=== PATIENT | female | born 1985 | race Caucasian/White ===

== ENCOUNTER 2016-11-30 20:44 | Emergency (ER) | payer OTHER, BC ==
[2016-11-30] MEDS ORDERED: Ketorolac 60 MG/2 ML SDV IM ONE (21:15)
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
[2016-11-30] MEDS ORDERED: Ondansetron 4 MG Tab.DIS PO ONE (22:42)
[2016-12-01 02:20] VITALS: BP 108/77
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
== END 2016-11-30 23:03 | disposition home or self-care (01) ==
LOC: MW.ED 20:44
DX: S40.012A Contusion of left shoulder, initial encounter (principal); S00.93XA Contusion of unspecified part of head, initial encounter; S10.93XA Contusion of unspecified part of neck, initial encounter; V49.9XXA Car occupant (driver) (passenger) injured in unspecified traffic accident, initial encounter; F17.200 Nicotine dependence, unspecified, uncomplicated
CPT/HCPCS: 70450; 72125; 73030; 99284; A9270; J1885; 96372

== ENCOUNTER 2017-04-06 07:51 | Day surgery (SDC) | payer BC ==
[~2017-04-06 07:51] MED LIST: Bupivacaine 0.5% 30 ML SDV ONE; Lactated Ringers 1,000 ML IV SCH; Midazolam 1 MG/ML 2 ML SDV ONE; Propofol 200 MG/20 ML SDV ONE; Sodium Chloride 0.9% 10 ML Syringe FLUSH PRN; Sodium Chloride 0.9% 2.5 ML Syringe FLUSH PRN; ceFAZolin 1 GM Vial ONE; ceFAZolin 1 GM in Premix Bag 1 BAG IV ONE; fentaNYL 100 MCG/2 ML SDV ONE
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
[2017-04-06] MEDS ORDERED: fentaNYL 100 MCG/2 ML SDV IVPUSH PRN (08:29)
[2017-04-06] MEDS ORDERED: Lidocaine 2% 5 ML SDV ONE (09:11)
[2017-04-06] MEDS ORDERED: Metoclopramide 10 MG/2 ML SDV ONE (09:11)
[2017-04-06] MEDS ORDERED: Ondansetron 4 MG/2 ML SDV ONE (09:11)
[2017-04-06] MEDS ORDERED: Ketorolac 30 MG/ML SDV ONE (09:11)
[2017-04-06] MEDS ORDERED: diphenhydrAMINE 50 MG/ML SDV ONE (09:11)
[2017-04-06] MEDS ORDERED: ceFAZolin 1 GM Vial ONE (09:35)
[2017-04-06] MEDS ORDERED: ePHEDrine 50 MG/ML SDV ONE (09:47)
[2017-04-06] MEDS ORDERED: fentaNYL 100 MCG/2 ML SDV ONE (10:03)
--- NOTE | 2017-04-06 10:39 | PCM.POSTAN ---
POST ANESTHESIA ASSESSMENT - MENTAL STATUS Mental Status: Alert, Oriented - RESPIRATORY Respiratory Status: Respiratory Rate WNL - CARDIOVASCULAR CV Status: Pulse Rate WNL, Blood Pressure Stable - GASTROINTESTINAL GI Status: No Symptoms - PAIN Pain Score: 0 - POST OP HYDRATION Hydration Status: Adequate & Stable - OBSERVATIONS Free Text/Narrative:: no anesthesia problems
--- NOTE | 2017-04-06 10:47 | PCM.OPNOTE ---
- General Post-Op/Procedure Note Date of Surgery/Procedure: 04/06/17 Operative Procedure(s): Umbilical hernia repair Findings: 2mm umbilical fascia defect Pre Op Diagnosis: Umbilical hernia Post-Op Diagnosis: Umbilical hernia Anesthesia Technique: General LMA Primary Surgeon: Regla Peraza Condition: Good
--- NOTE | 2017-04-06 11:46 | PCM48HPAN ---
Post Anesthesia Note - EVALUATION WITHIN 48HRS OF ANESTHETIC Vital Signs in Normal Range: Yes Patient Participated in Evaluation: Yes Respiratory Function Stable: Yes Airway Patent: Yes Cardiovascular Function Stable: Yes Hydration Status Stable: Yes Pain Control Satisfactory: Yes Nausea and Vomiting Control Satisfactory: Yes Mental Status Recovered: Yes
[2017-04-06 14:32] VITALS: BP 101/60
--- NOTE | 2017-04-06 19:59 | OR ---
SURGEON: HOLA JIANG MD DATE OF PROCEDURE: 04/06/2017 PREOPERATIVE DIAGNOSIS: Umbilical hernia. POSTOPERATIVE DIAGNOSIS: Umbilical hernia. PROCEDURE: Umbilical hernia repair. ANESTHESIA: General LMA. FLUIDS: See Anesthesia record. ESTIMATED BLOOD LOSS: 5 mL. FINDINGS: 2 mm defect just inferior to the umbilical stalk. Hernia sac containing preperitoneal fat. COMPLICATIONS: None. INDICATIONS: The patient is a 32-year-old female, who presents with a new umbilical hernia. She noticed this several months ago. She saw me in clinic and decided to keep an eye on it. While she was working out, she never felt it poke. It enlarged, became painful, and she was able to reduce it. The area was tender after this. She came to see me in clinic, and her hernia was reducible, but slightly larger. The decision was made to perform a hernia repair. We discussed the procedure as well as the expected perioperative course. We discussed the risks, including bleeding, infection, or damage to surrounding structures. The patient verbalized understanding and wishes to proceed. PROCEDURE IN DETAIL: The patient was brought into the OR and placed on the OR table in a supine position. A time-out was completed verifying the patient's name, age, date of , allergies, and procedure to be performed. General LMA anesthetic was induced. The abdomen was prepped and draped in the usual standard sterile fashion. I anesthetized the infraumbilical fold with 0.5% Marcaine plain. A 15 blade was used to make a curvilinear incision along the infraumbilical fold. Cautery was used to dissect down to the level of the subcutaneous fat. I immediately encountered a small hernia sac containing omentum. I was able to bluntly dissect this free from the surrounding subcutaneous fat and invert it through a small 2 mm defect in the fascia. Given the small size of this defect, the decision was made to repair primarily. Interrupted 0 Ethibond sutures were used to close the fascial defect. Hemostasis was achieved, and the wound was closed with 3-0 Vicryl along the subcutaneous fat layer and a running 4-0 Monocryl stitch within the skin. Steri-Strips and sterile dressings were applied. The patient was taken to the PACU in stable condition. RICHARD CRAMER /[id number] MTDJorge
== END 2017-04-06 12:25 | disposition home or self-care (01) ==
LOC: MW.SDS 07:51
PROVIDERS: ATTEND Surgery
DX: K42.9 Umbilical hernia without obstruction or gangrene (principal); G43.909 Migraine, unspecified, not intractable, without status migrainosus; F17.200 Nicotine dependence, unspecified, uncomplicated; Z98.890 Other specified postprocedural states; Z90.89 Acquired absence of other organs; Z98.82 Breast implant status
CPT/HCPCS: 49585; 81025; J0690; J1200; J1885; J2250; J2405; J2765; J3010; J7120; 00830; J2704

== ENCOUNTER 2022-04-26 09:23 | Day surgery (SDC) | payer OTHER ==
[~2022-04-26 09:23] MED LIST changes: +Albuterol 0.083% 2.5 MG/3 ML Neb Soln NEB PRN; -Bupivacaine 0.5% 30 ML SDV ONE; +HYDROmorphone 1 MG/ML Syringe IVPUSH PRN; +Metoclopramide 10 MG/2 ML SDV IVPUSH PRN; -Midazolam 1 MG/ML 2 ML SDV ONE; +Morphine 2 MG/ML SYRINGE IVPUSH PRN; +Naloxone 0.4 MG/ML SDV IVPUSH PRN; +Ondansetron 4 MG/2 ML SDV IVPUSH PRN; -Propofol 200 MG/20 ML SDV ONE; +Sodium Chloride 0.9% 20 ML SDV IV PRN; -ceFAZolin 1 GM Vial ONE; -ceFAZolin 1 GM in Premix Bag 1 BAG IV ONE; -fentaNYL 100 MCG/2 ML SDV ONE; +fentaNYL 50 MCG/ML SDV IVPUSH PRN
[2022-04-26] MEDS ORDERED: fentaNYL 100 MCG/2 ML SDV ONE (10:07)
[2022-04-26] MEDS ORDERED: Propofol 200 MG/20 ML SDV ONE (10:07)
[2022-04-26] MEDS ORDERED: Dexmedetomidine 200 MCG/2 ML SDV ONE (10:07)
[2022-04-26] MEDS ORDERED: Lidocaine 2% 5 ML SDV ONE (10:07)
[2022-04-26] MEDS ORDERED: Dexamethasone 4 MG/ML 5 ML MDV ONE (10:50)
[2022-04-26] MEDS ORDERED: ePHEDrine 50 MG/ML SDV ONE (11:01)
[2022-04-26] MEDS ORDERED: Ketorolac 30 MG/ML SDV ONE (11:05)
[2022-04-26 12:43] VITALS: BP 97/55; PULSE 54
== END 2022-04-26 12:23 | disposition home or self-care (01) ==
LOC: MW.SDS 09:23
PROVIDERS: ATTEND Obstetrics & Gynecology
DX: N93.9 Abnormal uterine and vaginal bleeding, unspecified (principal); N92.0 Excessive and frequent menstruation with regular cycle; G43.909 Migraine, unspecified, not intractable, without status migrainosus; Z79.899 Other long term (current) drug therapy; Z98.890 Other specified postprocedural states; Z91.048 Other nonmedicinal substance allergy status
CPT/HCPCS: 36415; 58563; 84703; 85027; J0131; J1100; J1885; J2704; J3010; J7120